=== PATIENT | male | born 1975 ===

== ENCOUNTER 2017-02-10 18:44 | Emergency (ER) | payer OTHER ==
--- NOTE | 2017-02-10 21:12 | C.PDOC ---
History Of Present Illness 41 year old male presents to the ED with complaints of left foot pain beginning this morning when a piece of metal fell onto his foot. Patient notes pain with movement but denies other injuries or change in sensation. Time Seen by Provider: 02/10/17 20:26 Chief Complaint (Nursing): Lower Extremity Problem/Injury History Per: Patient, Asl Interpreter (food order expediter used) History/Exam Limitations: no limitations Onset/Duration Of Symptoms: Hrs (since this morning ) Current Symptoms Are (Timing): Still Present Recent travel outside of the [place] States: No - Ankle/Foot Description Of Injury: Struck With Object (object fell on foot ) Past Medical History Reviewed: Historical Data, Nursing Documentation, Vital Signs Vital Signs: Last Vital Signs Temp 98.4 F 02/10/17 21:15 Pulse 82 02/10/17 21:15 Resp 18 02/10/17 21:15 BP 136/85 02/10/17 21:15 Pulse Ox 100 02/10/17 23:14 Family History: States: Unknown Family Hx - Social History Hx Alcohol Use: Yes Hx Substance Use: No Review Of Systems Constitutional: Negative for: Fever, Chills Musculoskeletal: Positive for: Foot Pain (left foot pain ) Neurological: Negative for: Weakness, Numbness Physical Exam - Physical Exam Appears: Non-toxic, No Acute Distress Skin: Warm, Dry Head: Atraumatic, Normacephalic Eye(s): bilateral: Normal Inspection, EOMI Nose: Normal Oral Mucosa: Moist Neck: Normal ROM, Supple Chest: Symmetrical, No Deformity Cardiovascular: Rhythm Regular, No Murmur Respiratory: Normal Breath Sounds, No Rales, No Rhonchi, No Wheezing Extremity: No Normal ROM (decreased secondary to pain), Tenderness (of the left great toe ), No Pedal Edema, No Calf Tenderness, Capillary Refill (good capillary refill, less than two seconds ), No Deformity, Swelling (and ecchymosis of the left great toe ) Pulses: Left Dorsalis Pedis: Normal, Right Dorsalis Pedis: Normal Neurological/Psych: Oriented x3, Normal Motor, Normal Sensation ED Course And Treatment O2 Sat by Pulse Oximetry: 100 (room air ) - Other Rad Left Foot X-Ray X-Ray: Interpreted by Me, Viewed By Me Interpretation: Fracture of the left great toe. Progress Note: Left foot X-ray was ordered and patient was given motrin. Pulse strong, no pallor, no parasthesia. Discussed signs of concern and instructed RICE, crutches were given and cast shoe. Patient instructed to follow up with podiatry in 1-2 days. Visual Specialist used to ensure understanding. Disposition - Disposition Referrals: Raiza Flaherty DPM [Staff Provider] - [facility] [Outside] Disposition: HOME/ ROUTINE Disposition Time: 21:10 Condition: STABLE Additional Instructions: Ice and elevate your foot. Follow up with podiatry in 1-2 days. Instructions: Toe Fracture (ED) Forms: [employer] (Urdu) - Clinical Impression Clinical Impression: Toe fracture - PA / MANAGER CARE / Resident Statement MD/DO has reviewed & agrees with the documentation as recorded. - Scribe Statement The provider has reviewed the documentation as recorded by the Scribe Navya Christian All medical record entries made by the Scribe were at my direction and personally dictated by me. I have reviewed the chart and agree that the record accurately reflects my personal performance of the history, physical exam, medical decision making, and the department course for this patient. I have also personally directed, reviewed, and agree with the discharge instructions and disposition.
[2017-02-10 21:16] VITALS: BP 136/85; PULSE 82; RESP 18; TEMP 98.4
[2017-02-10 23:10] VITALS: O2SAT 100
--- NOTE | 2017-02-11 11:04 | RAD ---
PROCEDURE: Left Foot Radiographs. HISTORY: foot injury COMPARISON: None. FINDINGS: BONES: A 1st proximal phalangeal comminuted fracture without significant appearing displacement noted. First interphalangeal joint fracture extension JOINTS: Fracture extension SOFT TISSUES: Normal. OTHER FINDINGS: None. IMPRESSION: Acute comminuted fracture 1st proximal phalanx without gross displacement. First interphalangeal joint extension
== END 2017-02-10 21:16 | disposition home or self-care (01) ==
LOC: C.ER 18:44
DX: S92.402A Displaced unspecified fracture of left great toe, initial encounter for closed fracture (principal); W22.8XXA Striking against or struck by other objects, initial encounter